=== PATIENT | male | born 1990 | race Caucasian/White ===

== ENCOUNTER 2018-07-09 20:19 | Emergency (ER) | payer SELFPAY ==
[~2018-07-09] VITALS: Ht 170.2 cm; Wt 87.5 kg
--- NOTE | 2018-07-09 20:30 | NUR ---
BIB paramedics to room 2B DX: alcohol intoxication. According to report patient was seen at [facility] this am with same DX. Patient opens eyes to name, but unable to answer any questions and goes back to sleep right away. Pupils equal and reactive to light.
--- NOTE | 2018-07-09 20:45 | NUR ---
Abrasion to R knee and cut to R lower lip cleaned. With scant amount of sero sanguineous drainage.
--- NOTE | 2018-07-09 21:14 | NUR ---
Seen by Dr. Mercado. Patient awake, speaks greenlandic and few words of [place].
--- NOTE | 2018-07-09 21:20 | NUR ---
When ask his age patient answers 27, but not able to accurately tell us his date of . Took some water without problems. Patient ambulated with monitoring. Gait steady.
--- NOTE | 2018-07-09 21:30 | NUR ---
Ambulated to the BR without problems.
--- NOTE | 2018-07-09 22:05 | NUR ---
Patient discharged to home in stable conditon. Written and verbal after care instructions given. Patient verbalizes understanding of instructions.
[2018-07-09 22:21] VITALS: BP 130/72
== END 2018-07-09 22:05 | disposition home or self-care (01) ==
LOC: EDBD 20:19 → ER 20:19
DX: F10.10 Alcohol abuse, uncomplicated (principal); F17.200 Nicotine dependence, unspecified, uncomplicated
CPT/HCPCS: A4663; J7030